=== PATIENT | male | born 1940 | race Caucasian/White ===

== ENCOUNTER 2017-10-04 09:20 | Outpatient (CLI) | payer OTHER | END 2017-10-04 09:26 | disposition home or self-care (01) | LOC: RAD 09:20 | DX: K40.90 Unilateral inguinal hernia, without obstruction or gangrene, not specified as recurrent (principal); Z01.811 Encounter for preprocedural respiratory examination ==

== ENCOUNTER 2017-10-04 09:55 | Outpatient (CLI) | payer OTHER | END 2017-10-04 10:18 | disposition home or self-care (01) | LOC: LAB 09:55 | DX: K40.90 Unilateral inguinal hernia, without obstruction or gangrene, not specified as recurrent (principal); Z01.812 Encounter for preprocedural laboratory examination ==

== ENCOUNTER 2017-10-04 09:58 | Outpatient (CLI) | payer OTHER | END 2017-10-04 10:14 | disposition home or self-care (01) | LOC: EKG 09:58 | DX: K40.90 Unilateral inguinal hernia, without obstruction or gangrene, not specified as recurrent (principal); Z01.810 Encounter for preprocedural cardiovascular examination ==

== ENCOUNTER 2017-10-07 10:05 | Outpatient (CLI) | payer OTHER ==
[2017-10-09] MEDS ORDERED: ASA81 MG PO (12:35)
[2017-10-09] MEDS ORDERED: SIMVASTATIN40 MG PO (12:35)
[2017-10-09] MEDS ORDERED: GLIPIZIDE ER2.5 MG PO (12:36)
[2017-10-09] MEDS ORDERED: METFORMIN HCL500 MG PO (12:36)
[2017-10-09] MEDS ORDERED: ALENDRONATE SOD70 MG PO (12:37)
[2017-10-09] MEDS ORDERED: MAXIMUM D310000 UNIT PO (12:37)
== END 2017-10-07 10:08 | disposition home or self-care (01) ==
LOC: LAB 10:05
DX: K40.90 Unilateral inguinal hernia, without obstruction or gangrene, not specified as recurrent (principal); Z01.812 Encounter for preprocedural laboratory examination

== ENCOUNTER 2017-10-10 05:40 | Day surgery (SDC) | payer OTHER ==
[~2017-10-10 05:40] MED LIST: ALENDRONATE SOD70 MG PO; ASA81 MG PO; GLIPIZIDE ER2.5 MG PO; MAXIMUM D310000 UNIT PO; METFORMIN HCL500 MG PO; SIMVASTATIN40 MG PO
== END 2017-10-10 15:20 | disposition home or self-care (01) ==
LOC: CIR.AMB 05:40
DX: K40.30 Unilateral inguinal hernia, with obstruction, without gangrene, not specified as recurrent (principal); N32.0 Bladder-neck obstruction; N35.8 Other urethral stricture; C61 Malignant neoplasm of prostate; D64.89 Other specified anemias

== ENCOUNTER 2025-03-09 01:21 | Emergency (ER) | payer OTHER ==
[~2025-03-09] VITALS: Ht 170.2 cm; Wt 56.7 kg
[2025-03-09] MEDS ORDERED: 0.9 % SODIUM CHLORIDE 1,000 ML IV STA (02:58)
[2025-03-09 03:34] LABS: BASO % 0.2 % (0.1-1.2); EOS # 0.19 (0.04-0.54); EOS % 1.8 % (0.7-7.0); LYMPH # 1.11 (1.18-3.74); LYMPH % 10.7 % (19.3-53.1); MEAN CORPUSCULAR HEMOGLOBIN 30.4 pg (25.6-32.2); MONO # 0.58 (0.24-0.82); MONO % 5.6 % (4.7-12.5); NEUT # 8.44 (1.56-6.13); NEUT % 81.4 % (34.0-71.1); PLATELET COUNT 277 K/uL (163-369); RED BLOOD COUNT 2.76 M/uL (4.63-6.08); RED CELL DISTRIBUTION WIDTH 15.8 % (11.6-14.4)
[2025-03-09 03:37] LABS: ERYTHROCYTE SEDIMENTATION RATE 122 mm/hr (0-20); HEMATOCRIT 26.1 % (40.1-51.0); HEMOGLOBIN 8.4 g/dL (13.7-17.5)
[2025-03-09 04:04] LABS: INR 1.08; PARTIAL THROMBOPLASTIN TIME 27.2 SECONDS (22.0-34.0); PROTHROMBIN TIME 11.7 SECONDS (9.0-11.5)
[2025-03-09 04:08] LABS: ALBUMIN 2.4 gm/dL (3.4-5.0); BILIRUBIN TOTAL 0.17 mg/dL (0.3-1.2); CREATININE SERUM 0.82 mg/dL (0.70-1.30); GFR 89.08; GLOBULINA 4.4 G/DL (2.4-3.5); POTASSIUM 4.03 mEq/L (3.5-5.1); TOTAL PROTEIN 6.8 gm/dL (6.4-8.2)
== END 2025-03-09 07:29 | disposition home or self-care (01) ==
LOC: ER 01:21
DX: D64.9 Anemia, unspecified (principal); R53.1 Weakness; E11.9 Type 2 diabetes mellitus without complications; I10 Essential (primary) hypertension; Z79.84 Long term (current) use of oral hypoglycemic drugs
CPT/HCPCS: 36415; 93005; 96365; 96366; 99282; J7030